=== PATIENT | female | born 2000 | race Caucasian/White ===

== ENCOUNTER → 2019-01-26 | Outpatient (CLI) | payer BC | LOC: GMAM 10:44 | PROVIDERS: ATTEND Family Medicine | DX: F34.1 Dysthymic disorder (principal) ==

== ENCOUNTER → 2019-12-14 | Outpatient (CLI) | payer BC | LOC: GMAM 17:13 | PROVIDERS: ATTEND Family Medicine | DX: R00.2 Palpitations (principal); R04.0 Epistaxis ==

== ENCOUNTER → 2019-12-23 | Outpatient (CLI) | payer BC | DX: R00.2 Palpitations (principal) ==